=== PATIENT | female | born 1990 | race Caucasian/White ===

== ENCOUNTER 2017-05-13 01:49 | Emergency (ER) | payer OTHER ==
--- NOTE | 2017-05-13 02:47 | EDM.PDOC ---
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 There is residual pain and some swelling of the forefoot overlying the 2nd ray. There is no ecchymoses, and ROM is not inhibited. She has taken no meds. She was not wearing a steel toed boot. Left Feet Pain Score (Numeric/FACES): 8 - Related Data Allergies Allergy/AdvReac Type Severity Reaction Status Date / Time amoxicillin [Amoxicillin] Allergy Hallucinati Verified 05/13/17 01:57 ons Home Meds: Home Meds NK [No Known Home Meds] 10/25/13 [History] Past Medical History - Past Health History Medical/Surgical History: Denies Medical/Surgical History Social & Family History - Family History Family Medical History: Noncontributory - Tobacco Use Smoking Status *Q: Current Every Day Smoker Years of Tobacco use: 18 Packs/Tins Daily: 1 - Caffeine Use Caffeine Use: Reports: Coffee, Energy Drinks, Soda - Recreational Drug Use Recreational Drug Use: No Review of Systems - Review of Systems Review Of Systems: ROS reveals no pertinent complaints other than HPI. ED EXAM, GENERAL - Physical Exam Exam: See Below Exam Limited By: No Limitations General Appearance: Alert, WD/WN, Mild Distress Head: Atraumatic, Normocephalic Neck: Normal Inspection, Full Range of Motion Respiratory/Chest: Lungs Clear Cardiovascular: Regular Rate, Rhythm Back Exam: Normal Inspection Extremities: Normal Range of Motion, Other (limited swelling and tenderness of the 2nd ray L foot, with no other visible deformity; ) Neurological: Alert, Oriented, CN II-XII Intact, Normal Cognition, No Motor/ Sensory Deficits Psychiatric: Normal Affect, Normal Mood Skin Exam: Warm, Dry Lymphatic: No Adenopathy Course - Vital Signs Text/Narrative:: I reviewed x rays of L foot: no fx deformity identified. Last Recorded V/S: Last Vital Signs Temp 36.6 C 05/13/17 02:07 Pulse 64 05/13/17 02:07 Resp 16 05/13/17 02:07 BP 118/90 05/13/17 02:07 Pulse Ox 100 05/13/17 02:07 - Orders/Labs/Meds Orders: Active Orders 24 hr Category Date Time Status Foot Comp Min 3V Lt [CR] Stat Exams 05/13/17 02:04 Taken Departure - Departure Time of Disposition: 02:46 Disposition: Home, Self-Care 01 Condition: Fair Clinical Impression: Contusion of left foot Qualifiers: Encounter type: initial encounter Qualified Code(s): S90.32XA - Contusion of left foot, initial encounter - Discharge Information Referrals: Orlando Green MD [Primary Care Provider] - - Problem List & Annotations (1) Contusion of left foot SNOMED Code(s): 02089888 Code(s): S90.32XA - CONTUSION OF LEFT FOOT, INITIAL ENCOUNTER Status: Acute Current Visit: Yes Annotation/Comment:: NSAIDs for pain, cool packs for comfort, work restrictions outlined on Workability Form Qualifiers: Encounter type: initial encounter Qualified Code(s): S90.32XA - Contusion of left foot, initial encounter - Problem List Review Problem List Initiated/Reviewed/Updated: Yes - My Orders Last 24 Hours: My Active Orders 05/13/17 02:04 Foot Comp Min 3V Lt [CR] Stat - Assessment/Plan Last 24 Hours: My Active Orders 05/13/17 02:04 Foot Comp Min 3V Lt [CR] Stat Plan: Follow up with PCP in 1 week.
--- NOTE | 2017-05-13 10:31 | CR ---
INDICATION: Dropped an aluminum pole on foot. Pain top of foot. LEFT FOOT: Three views of the left foot revealed no evidence of an acute fracture, dislocation, or other significant bone or joint abnormality. MTDD
== END 2017-05-13 02:56 | disposition home or self-care (01) ==
LOC: FB.ED 01:49
DX: S90.32XA Contusion of left foot, initial encounter (principal); F17.210 Nicotine dependence, cigarettes, uncomplicated; Z88.1 Allergy status to other antibiotic agents; W20.8XXA Other cause of strike by thrown, projected or falling object, initial encounter; Y99.0 Civilian activity done for income or pay
CPT/HCPCS: 73630-LT; 80305; 99282

== ENCOUNTER 2017-07-16 06:20 | Emergency (ER) | payer OTHER ==
--- NOTE | 2017-07-16 07:07 | EDM.PDOC ---
ED HPI GENERAL MEDICAL PROBLEM - General Chief Complaint: Headache Stated Complaint: HEADACHE Time Seen by Provider: 07/16/17 06:30 Source of Information: Reports: Patient History Limitations: Reports: No Limitations - History of Present Illness INITIAL COMMENTS - FREE TEXT/NARRATIVE: 26 y.o.w.f came to the ed with PC car due to a headache at her left forehead, behind her left eye with photophobia and nausea. Nausea and photophobia have been subsiding. Pt's main c/o is left sided, frontal headache, behind her left eye as well. No Trauma. No H/O Migraine in the past. She is 6 weeks ( 1st ). Pt was at the clinic for same a few days ago. 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 Cervical procedure as well. Social & Family History - Family History Family Medical History: Noncontributory - Tobacco Use Smoking Status *Q: Current Every Day Smoker Years of Tobacco use: 18 Packs/Tins Daily: 1 - Caffeine Use Caffeine Use: Reports: Coffee, Energy Drinks, Soda - Recreational Drug Use Recreational Drug Use: No ED ROS GENERAL - Review of Systems Review Of Systems: See Below Constitutional: Reports: No Symptoms HEENT: Reports: No Symptoms Respiratory: Reports: No Symptoms Cardiovascular: Reports: No Symptoms Endocrine: Reports: No Symptoms GI/Abdominal: Reports: No Symptoms : Reports: No Symptoms Musculoskeletal: Reports: No Symptoms Skin: Reports: No Symptoms Neurological: Reports: No Symptoms Psychiatric: Reports: No Symptoms Hematologic/Lymphatic: Reports: No Symptoms Immunologic: Reports: No Symptoms - Physical Exam Exam: See Below Exam Limited By: No Limitations General Appearance: Alert, WD/WN, Mild Distress Eye Exam: Bilateral Eye: Normal Inspection Ears: Normal External Exam Nose: Normal Inspection Throat/Mouth: Normal Inspection Head Exam: Atraumatic, Normocephalic Neck: Normal Inspection, Supple, Non-Tender, Full Range of Motion Respiratory/Chest: No Respiratory Distress, Lungs Clear, Normal Breath Sounds Cardiovascular: Normal Peripheral Pulses, Regular Rate, Rhythm GI/Abdominal: Normal Bowel Sounds, Soft, Non-Tender, No Organomegaly (Female) Exam: Deferred Rectal (Female) Exam: Deferred Neuro Exam (Abbreviated): Alert, Oriented, CN II-XII Intact, Normal Cognition, Normal Gait Back Exam: Normal Inspection, Full Range of Motion Extremities: Normal Inspection, Normal Range of Motion, Non-Tender Psychiatric: Normal Affect, Normal Mood Skin Exam: Warm, Dry, Intact, Normal Color, No Rash Course - Vital Signs Text/Narrative:: 26 y.o.w.f came to the ed with PC car due to a headache at her left forehead, behind her left eye with photophobia and nausea. Nausea and photophobia have been subsiding. Pt's main c/o is left sided, frontal headache, behind her left eye as well. No Trauma. No H/O Migraine in the past. She is 6 weeks ( 1st ). Pt was at the clinic for same a few days ago. Pt denies any other acute medical issues BP 135/80 Pulse 103 RR 18 Pulse ox 98% on RA PE: Migraine like symptoms Impression: Migraine vs tension H/A. New 7.02 am Consultation: DAYSI Mabry: Imitrex, NSAID and ultram are safe in the first 26 weeks of . Tx: Toradol, Imitrex Reexam: 100% improved, pain subsided Plan: D/C with instructions Last Recorded V/S: Last Vital Signs Temp 36.7 C 07/16/17 06:30 Pulse 84 07/16/17 07:45 Resp 18 07/16/17 07:45 BP 123/68 07/16/17 07:45 Pulse Ox 100 07/16/17 07:45 - Orders/Labs/Meds Meds: Medications Discontinued Medications Generic Name Dose Route Start Last Admin Trade Name Jacob PRN Reason Stop Dose Admin Ketorolac Tromethamine 60 mg 07/16/17 07:03 07/16/17 07:13 Toradol IM 07/16/17 07:04 60 mg ONETIME ONE Administration Ketorolac Tromethamine 60 mg 07/16/17 07:14 07/16/17 07:33 Toradol IM 07/16/17 07:15 Not Given ONETIME ONE Sumatriptan Succinate 6 mg 07/16/17 07:04 07/16/17 07:13 Imitrex SUBCUT 07/16/17 07:05 6 mg ONETIME ONE Administration Departure - Departure Time of Disposition: 07:14 Disposition: Home, Self-Care 01 Condition: Good Clinical Impression: Tension headache Migraine Qualifiers: Migraine type: without aura Status migrainosus presence: without status migrainosus Intractability: not intractable Qualified Code(s): G43.009 - Migraine without aura, not intractable, without status migrainosus Qualifiers: Weeks of gestation: less than 8 weeks Qualified Code(s): Z3A.01 - Less than 8 weeks gestation of - Discharge Information Instructions: Migraine Headache Referrals: Orlando Green MD [Primary Care Provider] - Forms: ED Department Discharge, ED Return to Work/School Form Additional Instructions: please increase water intake, tylenol for pain, please f/u with ACTIVE DIRECTORY SYSTEMS ADMINISTRATOR, come back if your symptoms get worse acutely
[2017-07-16] MEDS: SUMAtriptan 6 MG/0.5 ML SDV SUBCUT ONE (07:13)
[2017-07-16] MEDS: Ketorolac 60 MG/2 ML SDV IM ONE ×2 (07:13→07:33)
== END 2017-07-16 07:49 | disposition home or self-care (01) ==
LOC: FB.ED 06:20
DX: O99.351 Diseases of the nervous system complicating pregnancy, first trimester (principal); G43.009 Migraine without aura, not intractable, without status migrainosus; O99.330 Smoking (tobacco) complicating pregnancy, unspecified trimester; Z79.899 Other long term (current) drug therapy; Z3A.01 Less than 8 weeks gestation of pregnancy; Z88.1 Allergy status to other antibiotic agents
CPT/HCPCS: 96372; 99283; J1885; J3030

== ENCOUNTER 2022-11-27 02:40 | Emergency (ER) | payer OTHER ==
[2022-11-27] MEDS ORDERED: Diphtheria,Pertussis(Acell),Tetanus Vaccine 0.5 ML Syringe IM ONE (03:14)
== END 2022-11-27 03:38 | disposition home or self-care (01) ==
LOC: FB.ED 02:40
DX: S61.532A Puncture wound without foreign body of left wrist, initial encounter (principal); Z72.0 Tobacco use; Z98.890 Other specified postprocedural states; Z88.0 Allergy status to penicillin; Z23 Encounter for immunization; W26.0XXA Contact with knife, initial encounter; Y92.89 Other specified places as the place of occurrence of the external cause; Y99.0 Civilian activity done for income or pay
CPT/HCPCS: 90471; 90715; 99000; 99283-25